=== PATIENT | female | born 1990 | race Caucasian/White ===

== ENCOUNTER 2018-01-22 06:39 | Day surgery (SDC) | payer OTHER ==
[~2018-01-22] VITALS: Ht 152.4 cm; Wt 79.8 kg
[2018-01-22 08:05] LABS: BASOPHILS % (AUTO) 0.3 % (0.0-2.0); EOSINOPHILS % (AUTO) 0.2 % (0.0-4.0); HEMATOCRIT 40.9 % (36-48); HEMOGLOBIN 14.2 g/dL (12.0-16.0); LYMPHOCYTES # (AUTO) 1.6 K/uL (2.5-16.5); LYMPHOCYTES % (AUTO) 21.6 % (20.5-51.1); MEAN CORPUSCULAR HEMOGLOBIN 32 pg (27-31); MEAN CORPUSCULAR HGB CONC 35 g/dL (33-37); MEAN CORPUSCULAR VOLUME 92.9 fL (80-94); MONOCYTES # (AUTO) 0.3 K/uL (0.8-1.0); MONOCYTES % (AUTO) 4.3 % (1.7-9.3); NEUTROPHILS # (AUTO) 5.4 K/uL (1.8-7.7); NEUTROPHILS % (AUTO) 73.6 % (42.2-75.2); PLATELET COUNT (AUTO) 379 K/uL (140-450); RED CELL DISTRIBUTION WIDTH 12.3 % (11.6-13.7); WHITE BLOOD COUNT (AUTO) 7.3 K/uL (4.8-10.8)
[2018-01-22] MEDS ORDERED: fentaNYL 0.05 MG/ML VIAL ONE (09:27)
[2018-01-22] MEDS ORDERED: MIDAZOLAM 2 MG/2 ML VIAL ONE (09:27)
[2018-01-22] MEDS ORDERED: PROPOFOL 200 MG/20 ML VIAL IV ONE (09:30)
[2018-01-22 09:36] LABS: ANION GAP 12.1 (8-16); CARBON DIOXIDE 27.9 mmol/L (21-32); CREATININE 0.8 mg/dL (0.6-1.3)
[2018-01-22 09:43] LABS: TOTAL BILIRUBIN 0.7 mg/dL (0.0-1.0)
[2018-01-22] MEDS ORDERED: LACTATED RINGERS 1,000 ML IV SCH (10:11)
[2018-01-22] MEDS ORDERED: ONDANSETRON 4 MG/2 ML VIAL IVP PRN (10:15)
[2018-01-22] MEDS ORDERED: diphenhydrAMINE 50 MG/ML VIAL IVP PRN (10:15)
== END 2018-01-22 11:30 | disposition home or self-care (01) ==
LOC: MMU 06:39 → MDS 06:39
PROVIDERS: ATTEND Internal Medicine Gastroenterology
DX: K22.2 Esophageal obstruction (principal); K44.9 Diaphragmatic hernia without obstruction or gangrene; K29.70 Gastritis, unspecified, without bleeding; Z90.49 Acquired absence of other specified parts of digestive tract; Z98.890 Other specified postprocedural states; Z79.899 Other long term (current) drug therapy; G80.9 Cerebral palsy, unspecified; E66.9 Obesity, unspecified; Z68.34 Body mass index [BMI] 34.0-34.9, adult; K21.9 Gastro-esophageal reflux disease without esophagitis; Z79.01 Long term (current) use of anticoagulants
CPT/HCPCS: 36415; 43239; 45330; 71045; 80053; 84702; 85025; 86677; J2250; J2704; J3010; J7030; J7120; Q0092

== ENCOUNTER 2023-10-09 11:32 | Emergency (ER) | payer OTHER ==
[~2023-10-09] VITALS: Ht 147.3 cm; Wt 79.8 kg
[2023-10-09 11:40] VITALS: BP 129/69; PULSE 75; RESP 18; TEMP 98.9; O2SAT 95
[2023-10-09] MEDS ORDERED: FLONAS NS (12:29)
[2023-10-09 12:32] VITALS: BP 129/69; PULSE 75; RESP 18; TEMP 98.9; O2SAT 95
== END 2023-10-09 12:32 | disposition home or self-care (01) ==
LOC: MED 11:32
DX: G40.909 Epilepsy, unspecified, not intractable, without status epilepticus (principal); Z20.822 Contact with and (suspected) exposure to COVID-19; Z86.69 Personal history of other diseases of the nervous system and sense organs; Z79.899 Other long term (current) drug therapy
CPT/HCPCS: 99283